=== PATIENT | female | born 1960 | race Caucasian/White ===

== ENCOUNTER → 2024-10-20 14:14 | Outpatient (CLI) | payer BC, SELFPAY ==
--- NOTE | 2024-10-20 | DI.MRI.S_ITS ---
PROCEDURE: MR CERVICAL SPINE WO CON INDICATIONS: Frequent headaches TECHNIQUE: Noncontrast sagittal T1 spin echo and T2 fast spin echo, sagittal STIR, foraminal oblique sagittal T2 fast spin echo, and axial gradient echo or T2 fast spin echo through the cervical spine. COMPARISON: None. FINDINGS: Image quality: Excellent. Alignment and Curvature: There is normal bony alignment. Bone Marrow: Marrow demonstrates normal overall signal. Spinal Cord: Visualized spinal cord has normal size and signal. No cerebellar tonsillar herniation. Paraspinous Soft Tissues: No paravertebral masses. Prevertebral soft tissues are normal in thickness. C2-C3: Normal appearance. C3-C4: Normal appearance. C4-C5: Hypertrophic arthropathy results in moderate right foraminal stenosis. No central or left foraminal stenosis C5-C6: Posterior disc osteophyte complex and hypertrophic arthropathy. Mild central stenosis. Moderate bilateral foraminal stenosis. C6-C7: Posterior disc osteophyte complex. Mild central stenosis. Hypertrophic arthropathy. Severe bilateral foraminal stenosis C7-T1: No central or foraminal stenosis IMPRESSION: Multilevel degenerative disc disease and arthropathy results in varying degrees of central and foraminal stenosis including severe bilateral foraminal stenosis C6-7 Approved by: Vamshi Aaron M.D. on 10/22/2024 at 16:56
--- NOTE | 2024-10-20 | DI.MRI.S_ITS ---
PROCEDURE: MR HEAD/BRAIN WO/W CON INDICATIONS: frequent headaches TECHNIQUE: Noncontrast axial T1 spin echo, axial T2 fast spin echo, sagittal and axial FLAIR, coronal T2 fast spin echo, axial gradient echo, axial diffusion and ADC through the brain. After the administration of contrast, axial and coronal and sagittal 3D VIBE or T1 spin echo with fat saturation through the brain. COMPARISON: None. FINDINGS: CSF Spaces: Basal cisterns are patent. No extra-axial fluid collections. Ventricles are normal in size and shape. Brain: No intracranial masses or hemorrhage. Goldberg/white matter interface is normal. Brainstem appears normal. Diffusion-weighted sequence is unremarkable without evidence of acute infarct. Normal intravascular flow voids are present. Skull and face: Calvarial marrow is normal in signal. Orbits appear normal. Sinuses: Left maxillary sinus retention cyst IMPRESSION: Left maxillary sinus retention cyst without remodeling. Otherwise unremarkable MRI of the brain. No acute infarct, hemorrhage or mass lesion Approved by: Vamshi Aaron M.D. on 10/22/2024 at 16:51
== END ==
PROVIDERS: Referring Provider Physician Assistant; Visit Provider Physician Assistant
DX: J34.1 Cyst and mucocele of nose and nasal sinus (principal); R51.9 Headache, unspecified; R20.2 Paresthesia of skin; M48.02 Spinal stenosis, cervical region; M47.812 Spondylosis without myelopathy or radiculopathy, cervical region; M50.322 Other cervical disc degeneration at C5-C6 level
CPT/HCPCS: 70553; 72141; A9579